=== PATIENT | male | born 1955 | race Caucasian/White ===

== ENCOUNTER 2019-10-15 10:17 | Day surgery (SDC) | payer MEDICARE ==
[2019-10-13 10:49] VITALS: BMI 29.5
[~2019-10-15 10:17] MED LIST: DEXAMETHASONE SOD PHOSPHATE 4 MG/ML 1 ML VIAL IV ONE; FAMOTIDINE 20 MG/2 ML VIAL IV ONE; ONDANSETRON 4 MG/2 ML VIAL IVP ONE
[2019-10-15] MEDS ORDERED: LIDOCAINE 1% (10MG/ML) FOR IV START INTRADERMA ONE (11:05)
[2019-10-15] MEDS: LACTATED RINGERS 1,000 ML IV SCH ×4 (11:07→14:17)
[2019-10-15] MEDS ORDERED: ONDANSETRON 4 MG/2 ML VIAL ONE (11:09)
[2019-10-15] MEDS ORDERED: ONDANSETRON 4 MG/2 ML VIAL IVP ONE (11:12)
[2019-10-15] MEDS ORDERED: DEXAMETHASONE SOD PHOSPHATE 10 MG/ML 1 ML VIAL IV ONE (11:13)
[2019-10-15 11:20] LABS: Glucose,Whole Blood 115 mg/dL (75-99)
[2019-10-15] MEDS ORDERED: ROCURONIUM BROMIDE 10 MG/ML 5 ML VIAL IV ONE (12:06)
[2019-10-15] MEDS ORDERED: fentaNYL (PF) 50 MCG/ML 2 ML AMP ONE (12:06)
[2019-10-15] MEDS ORDERED: DEXAMETHASONE SOD PHOSPHATE 10 MG/ML 1 ML VIAL ONE (12:06)
[2019-10-15] MEDS ORDERED: NEOSTIGMINE 1 MG/ML 10 ML VIAL ONE (12:06)
[2019-10-15] MEDS ORDERED: PROPOFOL 10 MG/ML 20 ML VIAL IV ONE (12:06)
[2019-10-15] MEDS ORDERED: GLYCOPYRROLATE 0.2 MG/ML 2 ML VIAL ONE (12:06)
[2019-10-15] MEDS ORDERED: LIDOCAINE 1% INJ 10MG/ML (20 ML MDV) ONE (12:06)
[2019-10-15] MEDS ORDERED: MIDAZOLAM 2 MG/2 ML VIAL ONE (12:06)
[2019-10-15] MEDS ORDERED: LACTATED RINGERS 1,000 ML IV ONE (12:29)
--- NOTE | 2019-10-15 12:50 | P.OP ---
Date of Procedure: 10/15/19 Preoperative Diagnosis: Right true vocal cord lesion Postoperative Diagnosis: Same Procedure(s) Performed: Microlaryngoscopy with excision right true vocal cord lesion and biopsy Anesthesia: SHAWN Surgeon: Taj Price Estimated Blood Loss (ml): 2 Pathology: other (Right true vocal cord biopsies) Condition: stable Disposition: PACU Indications for Procedure: This is a 63-year-old white male with chronic hoarseness and notable right true vocal cord lesion on flexible laryngoscopy with examination is outpatient Operative Findings: Exophytic sessile right true vocal cord lesion which is on the medial and superior surface of the true vocal cord although not into the ventricle. 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 It did not extend quite to the anterior commissure approximately 3 mm from the anterior commissure and extended approximate two thirds [address] the way back on the true vocal cord. Description of Procedure: Patient was brought in the operative suite and placed in a supine position. Patient underwent induction of general anesthesia with oral endotracheal intubation without difficulty. The patient was prepped and draped in usual aseptic fashion. Tooth guard was placed and direct laryngoscopy was performed with systematic evaluation of the vallecula base of tongue piriform sinuses post cricoid area and endolarynx. With the laryngoscope in good visualization of the vocal cords the laryngoscope was placed in suspension. The Zeiss microscope was then brought into position to visualize the vocal cords through the laryngoscope. With the lesion in good visualization on the right vocal cord multiple biopsies were taken with cup forceps debriding the lesion. Due to the fact that this was possibly papilloma versus carcinoma the remainder of the lesion grossly was debrided with the top lifter blade although leaving the lamina propria intact. Once this was completed hemostasis was gained spontaneously. The patient was suctioned in the larynx. The laryngoscope and tooth guard were removed. The patient was allowed to emerge from general anesthesia having tolerated procedure well was extubated in the operating suite and transferred to the postop recovery area in satisfactory condition.
[2019-10-15 13:14] VITALS: TEMP 97
[2019-10-15 13:29] LABS: Glucose,Whole Blood 132 mg/dL (75-99)
[2019-10-15 14:11] VITALS: BP 145/80; PULSE 64; RESP 15
== END 2019-10-15 14:29 | disposition home or self-care (01) ==
LOC: OR 10:17
PROVIDERS: ATTEND Otolaryngology
DX: C32.0 Malignant neoplasm of glottis (principal); E11.9 Type 2 diabetes mellitus without complications; E78.5 Hyperlipidemia, unspecified; I10 Essential (primary) hypertension; H91.90 Unspecified hearing loss, unspecified ear; Z87.891 Personal history of nicotine dependence; Z83.3 Family history of diabetes mellitus; Z82.0 Family history of epilepsy and other diseases of the nervous system; Z83.42 Family history of familial hypercholesterolemia; Z80.0 Family history of malignant neoplasm of digestive organs; Z98.890 Other specified postprocedural states; Z97.2 Presence of dental prosthetic device (complete) (partial); Z79.84 Long term (current) use of oral hypoglycemic drugs; Z79.899 Other long term (current) drug therapy
CPT/HCPCS: 31536; 88305; 88342; 88341; J2250; J1100; J2710; J2405; J2001; J3010; J2704